=== PATIENT | female | born 1965 | race Caucasian/White ===

== ENCOUNTER 2017-07-03 09:29 | Emergency (ER) | payer OTHER ==
[~2017-07-03] VITALS: Ht 165.1 cm; Wt 108.9 kg
[~2017-07-03 09:29] MED LIST: AMLODIPINE BESY10 M1 PO; AMOX-CLAV 875-1 EACH PO; AMOXICILLIN875 M1 PO; AMOXIL500 MG PO; ASPIRIN EC81 M1 PO; AUGMENTIN 875-1 EACH PO; BACTRIM DS 8001 TAB PO; BACTRIM DS TAB1 EACH PO; CALCIUM + D SO1 EACH PO; CALCIUM CARBON200 MG PO; DIFLUCAN150 M1 PO; FENOFIBRATE145 M1 PO; FENOFIBRIC ACI135 M1 PO; FISH OIL 1,2001 EAC2 PO; FOLIC ACID1 M1 PO; FUROSEMIDE20 M1 PO; HUMALOG KW100 UNIT/1 SC; HYDROCHLOROTHIA25 M1 PO; INVOKANA100 M1 PO; LABETALOL HCL200 M1 PO; LABETALOL HCL300 M1 PO; LAMICTAL25 M1 PO; LAMOTRIGINE100 M2 PO; LANTUS SOL100 UNIT/1 SC; LASIX40 M1 PO; LEVEMIR100 UNIT/1 SC; METFORMIN HCL500 M3 PO; NOVOLOG100 UNIT/2 SC; NYSTATIN60 GM TOP; OMEGA-3 1,0501 EACH PO; POTASSIUM CHLO20 ME2 PO; PRAVASTATIN SOD40 M2 PO; RENVELA800 M1 PO; RISPERDAL1 M1 PO; RISPERIDONE1 M1 PO; SEROQUEL XR400 M1 PO; SIMVASTATIN10 M1 PO; TEGRETOL200 M1 PO; TOUJEO SOL300 UNIT/1 SC; TRADJENTA5 M1 PO; VALSARTAN320 M1 PO; VITAMIN B-121000 MC3 PO; VITAMIN D2000 UNIT PO
--- NOTE | 2017-07-03 10:29 | ED SKIN/ALLERGY COMPLAINT ---
History of Present Illness General Chief Complaint: Skin Rash/ Abcess Stated Complaint: ABCESS ON UPPER LATTERAL RIGHT TORSO Source: patient Exam Limitations: no limitations Vital Signs & Intake/Output Vital Signs & Intake/Output Vital Signs Date Time Temp Pulse Resp B/P B/P Pulse O2 O2 Flow FiO2 Mean Ox Delivery Rate 07/03 1110 97.9 90 18 128/72 98 Room Air 07/03 1020 99 Room Air 07/03 0938 98.9 102 16 132/68 97 Room Air Allergies Coded Allergies: No Known Allergies (08/06/16) Reconcile Medications Amlodipine Besylate 10 MG TABLET 1 TAB PO DAILY HTN (Reported) Amoxicillin 875 MG TABLET 1 TAB PO BID ABSCESS Aspirin (Ecotrin*) 81 MG TABLET.DR 1 TAB PO QPM HEART/BLOOD (Reported) Calcium Carb/Vitamin D3/Vit K1 (Calcium + D Soft Chewable Tab) (Unknown Strength ) TAB.CHEW (Unknown Dose) PO DAILY SUPPLEMENT (Reported) Carbamazepine (Tegretol) 200 MG TABLET 1 TAB PO BID MOOD (Reported) Cholecalciferol (Vitamin D3) (Vitamin D) (Unknown Strength) CAPSULE (Unknown Dose) PO DAILY SUPPLEMENT (Reported) Cyanocobalamin (Vitamin B-12) (Unknown Strength) TABLET (Unknown Dose) PO DAILY SUPPLEMENT (Reported) Fenofibrate Nanocrystallized (Fenofibrate) 145 MG TABLET 1 TAB PO DAILY CHOLESTEROL/TRIGLYCERIDES (Reported) Fluconazole (Diflucan) 150 MG TABLET 1 TAB PO ONCE YEAST INFECTION PROPHYLAXIS Folic Acid (Unknown Strength) TABLET (Unknown Dose) PO DAILY SUPPLEMENT ( Reported) Furosemide (Lasix) 40 MG TABLET 1 TAB PO DAILY HEART FAILURE . Insulin Glargine,Hum.rec.anlog (Toukriso Solostar) 300 UNIT/ML (1.5 ML) INSULN.PEN 60 UNITS SC QAM DM (Reported) Insulin Lispro (Humalog Kwikpen U-100) (Unknown Strength) INSULN.PEN (Unknown Dose) SC TIDAC/HS DM (Reported) Labetalol HCl 200 MG TABLET 400 MG PO BID hypertension . Linagliptin (Tradjenta) 5 MG TABLET 1 TAB PO DAILY DIABETES (Reported) [place]-3/Dha/Epa/Dpa/Fish Oil ([place]-3 1,050 MG Softgel) 1 EACH CAPSULE 1 CAP PO BID high cholesterol [place]-3S/Dha/Epa/Fish Oil (Fish Oil 1,200 MG Softgel) (Unknown Strength) CAPSULE 1 CAP PO DAILY SUPPLEMENT (Reported) Potassium Chloride 20 MEQ TAB.ER.PRT 1 TAB PO DAILY SUPPLEMENT (Reported) Pravastatin Sodium 40 MG TABLET 1 TAB PO QPM CHOLESTEROL (Reported) Sevelamer Carbonate (Renvela) 800 MG TABLET 1 TAB PO WM RENAL INSUFFICIENCY . Sulfamethoxazole/Trimethoprim (Bactrim Ds Tablet) 800 MG-160 MG TABLET 1 TAB PO BID ABSCESS/CELLULITIS Valsartan 320 MG TABLET 1 TAB PO DAILY BP (Reported) Triage Note: 51 Y/O FEMALE C/O ? ABCESS TO R FLANK X APPROX 3-4 DAYS. PT STATES AREA IS JUST BELOW BRA LINE AND IS IRRITATED BY BRA. STATES "ITS RAW AND THROBBING". PT BELIEVES THERE HAS BEEN SOME DRAINAGE. STATES AREA IS SURROUNDED BY REDNESS. SITE NOT VISUALIZED IN TRIAGE. AFEBRILE. Triage Nurses Notes Reviewed? yes Onset: Abrupt Duration: day(s): Timing: recent history Severity: moderate, severe Location: torso No Modifying Factors: none HPI: 51-year-old female comes into the emergency room for further evaluation of swelling and pain to her right torso region. Patient reports that she's had some redness and swelling and pain and a history of diabetes. She comes in for further evaluation. Denies any fever chills vomiting. Denies any flulike symptoms. Denies any other system symptoms. (Flash Pinto) Past History Travel History Traveled to [place] past 21 day No Medical History Any Pertinent Medical History? see below for history Neurological: peripheral neuropathy EENT: NONE Cardiovascular: hypertension, hyperlipidemia Respiratory: bronchitis, obstructive sleep apnea, pneumonia Gastrointestinal: NONE Hepatic: NONE Renal: NONE Musculoskeletal: NONE Psychiatric: NONE Endocrine: diabetes, thyroid nodules and hx of mild abnormal TFT Blood Disorders: NONE Cancer(s): NONE RN PRIMARY CARE/Reproductive: NONE History of MRSA: Yes History of VRE: No History of CDIFF: No Influenza Vaccine: 10/28/16 Surgical History Surgical History: I&D [address] Sosa RIGHT BREAST LUMPECTOMY Psychosocial History Who do you live with Patient/Self Services at Home None What is your primary language Korean Tobacco Use: Never used Family History Family History, If Any: FATHER (Diabetes). Hx Contributory? No (Flash Pinto) Review of Systems Review of Systems Constitutional: Reports: no symptoms. EENTM: Reports: no symptoms. Respiratory: Reports: no symptoms. Cardiovascular: Reports: no symptoms. GI: Reports: no symptoms. Genitourinary: Reports: no symptoms. Musculoskeletal: Reports: see HPI. Skin: Reports: see HPI. Neurological/Psychological: Reports: no symptoms. Hematologic/Endocrine: Reports: no symptoms. Immunologic/Allergic: Reports: no symptoms. All Other Systems: Reviewed and Negative (Flash Pinto) Physical Exam Physical Exam General Appearance: well developed/nourished, mild distress Head: atraumatic Eyes: Bilateral: normal appearance. Ears, Nose, Throat: normal ENT inspection, hearing grossly normal Neck: normal inspection Respiratory: no respiratory distress Back: normal inspection Extremities: normal inspection, normal range of motion, no edema Neurologic/Psych: awake, alert, oriented x 3, normal mood/affect Skin: intact Skin Problem Location: torso Skin Problem Character: abcess, erythema, swelling, tenderness, warm, Skin induration, right lateral torso, Lymphatic: no anterior cervical camilo (Flash Pinto) Progress Differential Diagnosis: abscess/cellulitis, contact dermatitis, shingles Plan of Care: Current Medications Sig/Dhara Start time Last Medication Dose Stop Time Status Admin Lidocaine 20 ML ONCE ONE 07/03 1030 UNVr (Lidocaine 1%) 07/03 1031 (Flash Pinto) Departure Departure Disposition: HOME OR SELF CARE Condition: Stable Clinical Impression Primary Impression: Abscess of trunk Secondary Impressions: Cellulitis Referrals: Tahira Hess APRN (PCP/Family) Additional Instructions: Take amoxicillin and Bactrim as prescribed. Hot baths at home. Return in 2 days for wound check. Return sooner if any other concerns worsening symptoms. Please go over all results of today's visit with your primary care doctor. Contact your primary care doctor to let them know you were here in the emergency room. There may be nonspecific findings which may not be related to your visit today here in the emergency room but may require further evaluation and chronic monitoring by your primary care doctor. If you had a laceration today the chance of foreign body always remains. You should follow-up with your primary care doctor for recheck in 3-5 days for a wound check. If you had an x-ray done there is a chance that a fracture could have been missed on initial read and you should follow-up with your primary care doctor for repeat x-rays if symptoms persist. If your blood pressure was elevated here in the emergency room please have rechecked by hyour primary care doctor within the next 48. If you were prescribed a narcotic here in the emergency room or any type of controlled substances you're not allowed to drive while taking this medication or operate any type of heavy machinery. Narcotics can make you feel lightheaded dizziness nausea and can cause constipation. You may need to picker and packer a stool softener. Thank you for choosing [facility] emergency room. Please return to the emergency room immediately if you have any other concerns worsening of symptoms. Departure Forms: Customer Survey General Discharge Information Prescriptions: Current Visit Scripts Sulfamethoxazole/Trimethoprim (Bactrim Ds Tablet) 1 TAB PO BID #20 TAB Amoxicillin 1 TAB PO BID #20 TAB (Flash Pinto) PA/LINE ERECTOR APPRENTICE Co-Sign Statement Statement: ED Attending supervision documentation- [] I saw and evaluated the patient. I have also reviewed all the pertinent lab results and diagnostic results. I agree with the findings and the plan of care as documented in the PA's/LINE ERECTOR APPRENTICE's documentation. [X] I have reviewed the ED Record and agree with the PA's/LINE ERECTOR APPRENTICE's documentation. [] Additions or exceptions (if any) to the PAs/LINE ERECTOR APPRENTICE's note and plan are summarized below: [] (Vikki EDUARDO,Yariel Gilliam) Procedures Incision and Drainage Site: RIGHT TRUNK Blade Size: 11 I & D Procedure: Yes: betadine prep, sterile drapes applied, sterile dressing applied, wick placed. Progress: 1% lidocaine with epinephrine, 5 mL injected, approximately 4 mL's of purulent discharge, adhesions broken up, (Flash Pinto)
[2017-07-03] MEDS ORDERED: BACTRIM DS TAB1 EACH PO (11:00)
[2017-07-03] MEDS ORDERED: AMOXICILLIN875 M1 PO (11:00)
[2017-07-03 11:10] VITALS: BP 128/72
== END 2017-07-03 11:10 ==
LOC: ERH 09:29
DX: L02.219 Cutaneous abscess of trunk, unspecified (principal); L03.319 Cellulitis of trunk, unspecified
CPT/HCPCS: 87184; 87070; 87147; J2001

== ENCOUNTER 2017-07-05 11:04 | Emergency (ER) | payer OTHER ==
[2017-07-05 11:08] VITALS: BP 152/82
--- NOTE | 2017-07-05 11:22 | ED ANIMAL BITE/WOUND CHECK ---
History of Present Illness General Chief Complaint: Suture Removal/Wound Recheck Stated Complaint: WOUND CHECK Source: patient Exam Limitations: no limitations Vital Signs & Intake/Output Vital Signs & Intake/Output Vital Signs Date Time Temp Pulse Resp B/P B/P Pulse O2 O2 Flow FiO2 Mean Ox Delivery Rate 07/05 1108 97.9 100 20 152/82 98 Allergies Coded Allergies: No Known Allergies (08/06/16) Reconcile Medications Amlodipine Besylate 10 MG TABLET 1 TAB PO DAILY HTN (Reported) Amoxicillin 875 MG TABLET 1 TAB PO BID ABSCESS Aspirin (Ecotrin*) 81 MG TABLET.DR 1 TAB PO QPM HEART/BLOOD (Reported) Calcium Carb/Vitamin D3/Vit K1 (Calcium + D Soft Chewable Tab) (Unknown Strength ) TAB.CHEW (Unknown Dose) PO DAILY SUPPLEMENT (Reported) Carbamazepine (Tegretol) 200 MG TABLET 1 TAB PO BID MOOD (Reported) Cholecalciferol (Vitamin D3) (Vitamin D) (Unknown Strength) CAPSULE (Unknown Dose) PO DAILY SUPPLEMENT (Reported) Cyanocobalamin (Vitamin B-12) (Unknown Strength) TABLET (Unknown Dose) PO DAILY SUPPLEMENT (Reported) Fenofibrate Nanocrystallized (Fenofibrate) 145 MG TABLET 1 TAB PO DAILY CHOLESTEROL/TRIGLYCERIDES (Reported) Folic Acid (Unknown Strength) TABLET (Unknown Dose) PO DAILY SUPPLEMENT ( Reported) Furosemide (Lasix) 40 MG TABLET 1 TAB PO DAILY HEART FAILURE . Insulin Glargine,Hum.rec.anlog (Toujeo Solostar) 300 UNIT/ML (1.5 ML) INSULN.PEN 60 UNITS SC QAM DM (Reported) Insulin Lispro (Humalog Kwikpen U-100) (Unknown Strength) INSULN.PEN (Unknown Dose) SC TIDAC/HS DM (Reported) Labetalol HCl 200 MG TABLET 400 MG PO BID hypertension . Linagliptin (Tradjenta) 5 MG TABLET 1 TAB PO DAILY DIABETES (Reported) [place]-3/Dha/Epa/Dpa/Fish Oil ([place]-3 1,050 MG Softgel) 1 EACH CAPSULE 1 CAP PO BID high cholesterol [place]-3S/Dha/Epa/Fish Oil (Fish Oil 1,200 MG Softgel) (Unknown Strength) CAPSULE 1 CAP PO DAILY SUPPLEMENT (Reported) Potassium Chloride 20 MEQ TAB.ER.PRT 1 TAB PO DAILY SUPPLEMENT (Reported) Pravastatin Sodium 40 MG TABLET 1 TAB PO QPM CHOLESTEROL (Reported) Sevelamer Carbonate (Renvela) 800 MG TABLET 1 TAB PO WM RENAL INSUFFICIENCY . Sulfamethoxazole/Trimethoprim (Bactrim Ds Tablet) 800 MG-160 MG TABLET 1 TAB PO BID ABSCESS/CELLULITIS Valsartan 320 MG TABLET 1 TAB PO DAILY BP (Reported) Triage Note: PER PT HERE FOR WOUND RECHECK, ABSCESS UNDER RT BREAST/BACK LINE Triage Nurses Notes Reviewed? yes Onset: Abrupt Duration: day(s): Timing: recent history Injury Environment: home Is Injury an Animal Bite? No HPI: 51-year-old female comes into the emergency room for further evaluation of abscess recheck to right chest wall. Patient reports that she was seen here 2 days ago. She had an incision and drainage done. She is currently on oral antibiotics. She reports some improvement in the pain the swelling. Denies any fever chills with symptoms. She comes in for further evaluation. (Flash Pinto) Past History Travel History Traveled to [place] past 21 day No Medical History Any Pertinent Medical History? see below for history Neurological: peripheral neuropathy EENT: NONE Cardiovascular: hypertension, hyperlipidemia Respiratory: bronchitis, obstructive sleep apnea, pneumonia Gastrointestinal: NONE Hepatic: NONE Renal: NONE Musculoskeletal: NONE Psychiatric: NONE Endocrine: diabetes, thyroid nodules and hx of mild abnormal TFT Blood Disorders: NONE Cancer(s): NONE CHEF BROILER OR FRY/Reproductive: NONE History of MRSA: Yes History of VRE: No History of CDIFF: No Surgical History Surgical History: I&D [address] Sosa RIGHT BREAST LUMPECTOMY Psychosocial History Who do you live with Patient/Self Services at Home None What is your primary language Romansh Tobacco Use: Never used Family History Family History, If Any: FATHER (Diabetes). Hx Contributory? No (Flash Pinto) Review of Systems Review of Systems Constitutional: Reports: no symptoms. EENTM: Reports: no symptoms. Respiratory: Reports: no symptoms. Cardiovascular: Reports: no symptoms. GI: Reports: no symptoms. Genitourinary: Reports: no symptoms. Musculoskeletal: Reports: no symptoms. Skin: Reports: see HPI. Neurological/Psychological: Reports: no symptoms. Hematologic/Endocrine: Reports: no symptoms. Immunologic/Allergic: Reports: no symptoms. All Other Systems: Reviewed and Negative (Flash Pinto) Physical Exam Physical Exam General Appearance: well developed/nourished, mild distress Head: atraumatic Eyes: Bilateral: normal appearance. Ears, Nose, Throat: normal ENT inspection, hearing grossly normal Neck: normal inspection Respiratory: no respiratory distress Back: normal inspection Extremities: normal range of motion Neurologic/Psych: awake, alert, oriented x 3, normal mood/affect Skin: Induration to right chest wall, some purulent drainage, some erythema, (Flash Pinto) Progress Differential Diagnosis: abscess, cellulitis, joint infection, tenosysnovitis Plan of Care: 07/05/2017 1:18:07 PM Compared to the other day the abscess appears to be improved. I did the incision and drainage of the day. She still has discharge. She was told to resume taking antibiotics. Culture sensitivities are not back yet. Patient was told to continue hot compresses and soaks and referred to Dr. Piper from general surgery for follow-up. If she gets any worsening of symptoms she was told to return here to the emergency room. She clinically looks well. She is nontoxic-appearing. She understands and agrees with plan of care (Flash Pinto) Departure Departure Disposition: HOME OR SELF CARE Condition: Stable Clinical Impression Primary Impression: Abscess re-check Referrals: Tahira Hess APRN (PCP/Family) Additional Instructions: Continue taking oral antibiotics. Continue warm soaks and compresses. Follow- up with general surgeon next week. Return immediately if any increased pain, fever, chills, flulike symptoms or spreading of redness. Please go over all results of today's visit with your primary care doctor. Contact your primary care doctor to let them know you were here in the emergency room. There may be nonspecific findings which may not be related to your visit today here in the emergency room but may require further evaluation and chronic monitoring by your primary care doctor. If you had a laceration today the chance of foreign body always remains. You should follow-up with your primary care doctor for recheck in 3-5 days for a wound check. If you had an x-ray done there is a chance that a fracture could have been missed on initial read and you should follow-up with your primary care doctor for repeat x-rays if symptoms persist. If your blood pressure was elevated here in the emergency room please have rechecked by hyour primary care doctor within the next 48. If you were prescribed a narcotic here in the emergency room or any type of controlled substances you're not allowed to drive while taking this medication or operate any type of heavy machinery. Narcotics can make you feel lightheaded dizziness nausea and can cause constipation. You may need to picking machine operator a stool softener. Thank you for choosing [facility] emergency room. Please return to the emergency room immediately if you have any other concerns worsening of symptoms. Departure Forms: Customer Survey General Discharge Information (Flash Pinto) PA/AUTOMOTIVE PAINT TECHNICIAN Co-Sign Statement Statement: ED Attending supervision documentation- [] I saw and evaluated the patient. I have also reviewed all the pertinent lab results and diagnostic results. I agree with the findings and the plan of care as documented in the PA's/AUTOMOTIVE PAINT TECHNICIAN's documentation. [X] I have reviewed the ED Record and agree with the PA's/AUTOMOTIVE PAINT TECHNICIAN's documentation. [] Additions or exceptions (if any) to the PAs/AUTOMOTIVE PAINT TECHNICIAN's note and plan are summarized below: [] (Vikki EDUARDO,Yariel Gilliam)
== END 2017-07-05 11:39 ==
LOC: ERH 11:04
DX: Z48.00 Encounter for change or removal of nonsurgical wound dressing (principal)